=== PATIENT | male | born 1955 | race Caucasian/White ===

== ENCOUNTER 2019-03-06 07:13 | Day surgery (SDC) | payer OTHER ==
[~2019-03-06] VITALS: Ht 167.6 cm; Wt 75.4 kg
[~2019-03-06 07:13] MED LIST: CEFAZOLIN 2 GM/50 ML (PMX) 50 ML IVPB ONE; DEXAMETHASONE 4 MG/ML 5 ML INJ ONE; PROVENTIL HFA 6.7GM INHALER ONE; SEVOFLURANE 15 MIN ONE
[2019-03-06] MEDS ORDERED: MIDAZOLAM 1 MG/ML 2 ML INJ ONE (07:48)
[2019-03-06] MEDS ORDERED: FENTAnyl 50 MCG/ML VIAL ONE (07:48)
[2019-03-06] MEDS ORDERED: ONDANSETRON 4 MG INJ ONE (07:49)
[2019-03-06] MEDS ORDERED: METOCLOPRAMIDE 10 MG INJ ONE (07:49)
[2019-03-06 08:04] VITALS: Ht 167.6 cm; Wt 75.4 kg
[2019-03-06 08:08] VITALS: BP 113/71; PULSE 73; RESP 16
[2019-03-06] MEDS ORDERED: PROPOFOL 20 ML ONE (08:09)
[2019-03-06] MEDS ORDERED: CEFAZOLIN 1 GM INJ ONE (08:09)
[2019-03-06] MEDS ORDERED: LIDOCAINE 2% (SDV) 5 ML INJ ONE (08:09)
--- NOTE | 2019-03-06 08:28 | PREAC ---
Date/Time of Note Date/Time of Note DATE: 03/06/19 TIME: 08:26 Anesthesia Eval and Record Evaluation Time Pre-Procedure Interview DATE: 03/06/19 TIME: 08:26 Age 63 Sex male NPO: 8 hrs Preoperative diagnosis spermatocoele Planned procedure hydrocoelectomy Past Medical History Past Medical History: None Surgery & Anesthesia Issues No known issue Meds Anticoagulation: No Beta Tiff within 24 hr: No Reason Beta Tiff not given: Pt. not on B-Tiff No Active Prescriptions or Reported Meds Meds reviewed: Yes Allergies Coded Allergies: No Known Allergy (Unverified , 03/06/19) Allergies Reviewed: Yes Labs/Studies Labs Reviewed: Reviewed by anesthesiologist test: N/A Studies: ECG, CXR Pre-procedure Exam Last vitals Vital Signs Date Temp Pulse Resp B/P (MAP) Pulse Ox O2 O2 Flow FiO2 Time Delivery Rate 03/06/19 98.1 73 16 113/71 98 Room Air 08:08 (85) Airway: Adequate mouth opening, Adequate thyromental dist Mallampati: Mallampati III Teeth: Normal Lung: Normal Heart: Normal ASA Physical Status ASA physical status: 2 Emergency: None Planned Anesthetic General/MAC: LMA Planned Pain Management Parenteral pain med, Local by surgeon Pre-operative Attestations Prior to commencing anesthesia and surgery, the patient was re-evaluated, there was verification of: *The patient's identity *The results of appropriate recent lab work and preoperative vital signs *The above evaluation not changing prior to induction *Anesthetic plan, risk benefits, alternative and complications discussed with patient/family; questions answered; patient/family understands, accepts and wishes to proceed. EUGENIE DEL ROSARIO MD Mar 06, 2019 08:28
[2019-03-06] MEDS ORDERED: HYDROmorphONE 1 MG/5 ML IV SYRINGE IV PRN ×3 (08:30)
[2019-03-06] MEDS ORDERED: DIPHENHYDRAMINE 50 MG INJ IV PRN (08:30)
[2019-03-06] MEDS ORDERED: KETOROLAC 30 MG INJ IV PRN (08:30)
[2019-03-06] MEDS ORDERED: LEVALBUTEROL (NEB) 1.25 MG/0.5 ML AMP HHN PRN (08:30)
[2019-03-06] MEDS ORDERED: MEPERIDINE 25 MG INJ IV PRN (08:30)
[2019-03-06] MEDS ORDERED: ONDANSETRON 4 MG INJ IV PRN (08:30)
[2019-03-06] MEDS ORDERED: FENTAnyl 50 MCG/ML VIAL IV PRN ×2 (08:30)
--- NOTE | 2019-03-06 09:05 | HPN ---
Date/Time of Note Date/Time of Note DATE: 03/06/19 TIME: 09:04 Interval H&P Admission Note Pt. seen H&P reviewed: No system changes FRANCISCA HALE Mar 06, 2019 09:05
[2019-03-06] MEDS ORDERED: BUPIVACAINE 0.25% (MPF) 30 ML INJ ONE (09:39)
[2019-03-06 10:03] VITALS: BP 109/62; PULSE 72; RESP 12
[2019-03-06 10:08] VITALS: BP 105/65; PULSE 68; RESP 12
--- NOTE | 2019-03-06 10:10 | PDOCDIS ---
Discharge Instructions DIAGNOSIS Discharge Diagnosis Hydrocele and spermatocele CONDITION Aby Patient Condition: Sarah Good HOME CARE INSTRUCTIONS: Aby Diet Instructions: Sarah Regular ACTIVITY: Aby Activity Restrictions: Sarah Slowly Increase Activity Aby Bathing Restrictions: Sarah Tub Bath FOLLOW UP/APPOINTMENTS Follow-up Plan follow up in office in 2 weeks, call for date and time light activity scrotal support keep wound clean and dry x 5days REFERRALS Aby Referring Provider: FRANCISCA Johnson EVAN Mar 06, 2019 10:10
--- NOTE | 2019-03-06 10:13 | OPR ---
Date/Time of Note Date/Time of Note DATE: 03/06/19 TIME: 10:11 Operative Report Procedure Date: Mar 06, 2019 Preoperative Diagnosis left spermatocele and hydrocele Postoperative Diagnosis same Operation/Procedure Performed left hydrocelectomy and spermatocelectomy Surgeon Helen Account Installation Specialist None Anesthesia Type: general Estimated Blood Loss: none Transfusion none Specimen hydrocele and spermatocele Grafts/Implants none Tubes/Drains none Complications none Pt Condition Post Procedure: stable Disposition: PACU Indications scrotal mass Procedure Description dict [id number] FRANCISCA HALE Mar 06, 2019 10:13
[2019-03-06 11:06] VITALS: BP 126/76; PULSE 68; RESP 18
[2019-03-06] MEDS ORDERED: HYDROCODONE/APAP (5/325) TAB PO ONE (11:24)
--- NOTE | 2019-03-06 12:16 | PAC ---
Date/Time of Note Date/Time of Note DATE: 03/06/19 TIME: 12:15 Post-Anesthesia Notes Post-Anesthesia Note Last documented vital signs Vital Signs Date Temp Pulse Resp B/P (MAP) Pulse Ox O2 O2 Flow FiO2 Time Delivery Rate 03/06/19 Simple 10.0 10:12 Mask 03/06/19 68 12 105/65 99 10:08 (78) 03/06/19 98.2 10:06 Activity: WNL Respiratory function: WNL Cardiovascular function: WNL Mental status: Baseline Pain reasonably controlled: Yes Hydration appropriate: Yes Nausea/Vomiting absent: Yes EUGENIE DEL ROSARIO MD Mar 06, 2019 12:16
--- NOTE | 2019-03-06 13:24 | OPR ---
DATE OF OPERATION: 03/06/2019 PREOPERATIVE DIAGNOSES: 1. Left hydrocele. 2. Left spermatocele. POSTOPERATIVE DIAGNOSES: 1. Left hydrocele. 2. Left spermatocele. OPERATIONS: Left hydrocelectomy, left spermatocelectomy. SURGEON: Jamie Cervantes MD ANESTHESIA: General. COMPLICATIONS: None. ESTIMATED BLOOD LOSS: None. SPECIMEN: Hydrocele and spermatocele. DESCRIPTION OF PROCEDURE: The patient was brought on brought into the operating room and placed on [facility] operating room table in the supine position. He was prepped and draped in usual fashion after ane sthesia was induced. A timeout was undertaken. Appropriate pressure points were padded. He receive d preoperative antibiotic therapy. Sequential compression devices were applied. Examination demonst rated a left hemiscrotal mass. A transverse left hemiscrotal incision was created with a 15-blade sc alpel through the scrotal wall down to the layer of the tunica vaginalis which was from the surrounding structures in an avascular plane thus delivering the testicle and a cystic mass. An inc ision was created on the anterior aspect of the tunica vaginalis/hydrocele sac which allowed for drai nage of 20 mL of clear fluid. A portion of the anterior tunica vaginalis was resected, thus exposing the testicle with an attached large spermatocele on the caput epididymis thus displacing the epididy mis off of the testicle. Preservation of the testicle and cord structure was undertaken throughout t entire case. The spermatocele was from the surrounding structures with blunt and sharp dissection down to the isthmus which was with 3-0 chromic suture and Metzenbaum scissors. The spermatocele was removed intact. Pinpoint hemostasis was obtained utilizing interrupted 3-0 ocean biologist hollie sutures, the defect was corrected and the tunica vaginalis was everted with a newly post-edges be ing reapproximated with a running stitch of 3-0 Vicryl suture. Pinpoint hemostasis was obtained. Th ere was no essential oozing and thus a drain was not placed. The scrotal wall was then closed in 2 l rizvi, the first layer with a running stitch of 3-0 Vicryl suture and then the skin with interrupted 3-0 Monocryl. A total of 4 mL of 0.25% Marcaine without epinephrine was instilled into the scrotal w all. Scrotal support and fluffs were applied. He was transferred to recovery room in stable conditi on and discharged to home on [facility] one tab p.o. q.6 hours p.r.n., dispensed #25, no refill. He will follow up in the office in 2 weeks' time. All questions were answered. Dictated By: JAMIE RIOS/NTS Conf#: [id number] DID#: [id number]
== END 2019-03-06 12:13 | disposition home or self-care (01) ==
LOC: SDS 07:13
PROVIDERS: ATTEND Urology
DX: N43.40 Spermatocele of epididymis, unspecified (principal); N43.3 Hydrocele, unspecified; N40.1 Benign prostatic hyperplasia with lower urinary tract symptoms; R35.0 Frequency of micturition; R35.1 Nocturia
CPT/HCPCS: 54840; 55000; 88304; J0690; J1885; J2250; J2405; J2765; J3010; Z7512; Z7610; J1100